=== PATIENT | male | born 1965 | race Caucasian/White ===

== ENCOUNTER 2018-03-22 00:16 | Emergency (ER) | payer BC ==
[2018-03-22 00:23] VITALS: BP 160/97; PULSE 70; RESP 18; TEMP 98.5
--- NOTE | 2018-03-22 01:03 | ED ---
ENT HPI - General Chief complaint: ENT Stated complaint: Ear and Tooth Pain Time Seen by Provider: 03/22/18 01:02 Source: patient Mode of arrival: ambulatory Limitations: no limitations - History of Present Illness Initial comments: Tevin is a 52-year-old male with past medical history of chronic dental pain, recurrent otitis and chronic sinusitis who presents the emergency department today for evaluation of left-sided ear pain. Patient reports that he's been dealing with chronic dental pain since 2012 at which time he had all of his teeth removed and was fitted for dentures. He reports that despite having his teeth removed he's experience chronic pain in his gums and has been unable to wear his dentures. Patient states that he's also had chronic sinusitis and always has congestion of his left naris. Patient reports he has had ear infections in the past and that over the past couple of days he's developed progressively worsening pain in his left ear which is similar in character to previous episodes of ear infection. Patient describes it as a constant pressure -like pain which is worse with laying down and better when he applies a heating pad to his ear. Patient denies any fevers, chills, nausea, vomiting, change in bowel or bladder habits or any other complaints. He reports that he has not been on any antibiotics in a number of months to years. - Related Data Previous Rx's Medication Instructions Recorded Amoxicillin/Potassium Clav 1 tab PO Q12HR 7 Days #14 tab 03/22/18 [Augmentin 875-125 Tablet] Allergies Allergy/AdvReac Type Severity Reaction Status Date / Time No Known Allergies Allergy Verified 03/22/18 00:23 Review of Systems ROS Statement: Those systems with pertinent positive or pertinent negative responses have been documented in the HPI. ROS Other: All systems not noted in ROS Statement are negative. Past Medical History Past Medical History: Hypertension Additional Past Medical History / Comment(s): tremors, macular degeneration History of Any Multi-Drug Resistant Organisms: None Reported Past Surgical History: Cholecystectomy, Tonsillectomy Past Psychological History: No Psychological Hx Reported Smoking Status: Never smoker Past Alcohol Use History: None Reported Past Drug Use History: None Reported General Exam - General Exam Comments Initial Comments: GENERAL: Patient is well-developed and well-nourished. Patient is nontoxic and well- hydrated and is in no distress. HENT: Normocephalic, Atraumatic. Neck is soft and supple. No significant lymphadenopathy is noted. Oropharynx is clear. Patient is intentionally is, gums are pink and non-infected. Moist mucous membranes. Neck has full range of motion without eliciting any pain. TM injected bilaterally, left TM with air fluid level behind TM, scars on TM from previous perforation EYES: The sclera were anicteric and conjunctiva were pink and moist. Extraocular movements were intact and pupils were equal round and reactive to light. Eyelids were unremarkable. PULMONARY: Unlabored respirations. Good breath sounds bilaterally. No audible rales rhonchi or wheezing was noted. CARDIOVASCULAR: There is a regular rate and rhythm without any murmurs gallops or rubs. ABDOMEN: Soft and nontender with normal bowel sounds. SKIN: Skin is clear with no lesions or rashes and otherwise unremarkable. NEUROLOGIC: Patient is alert and oriented x3. Cranial nerves II through XII are grossly intact. Motor and sensory are also intact. Normal speech, volume and content. Symmetrical smile. MUSCULOSKELETAL: Normal extremities with adequate strength and full range of motion. No lower extremity swelling or edema. LYMPHATICS: No significant lymphadenopathy is noted PSYCHIATRIC: Normal psychiatric evaluation. Limitations: no limitations Limitations: no limitations Course Vital Signs 03/22/ 00:21 Temperature 98.5 F Pulse Rate 70 Respiratory 18 Rate Blood Pressure 160/97 O2 Sat by Pulse 97 Oximetry Medical Decision Making - Medical Decision Making Patient was seen and evaluated, history was obtained from patient physical exam reveals a scarred left TM with fluid and air/fluid level behind TM , some erythema - will treat for acute OM, patient not recently on oral antibiotics No mastoid tenderness, swelling or concern for mastoiditis Patient with chronic sinusitis and problems with congestion/sinus pressure on the left, I recommended he follow up with ENT outpatient for further management. Patient is agreeable to this plan. Questions pertaining care were answered best my ability and patient was discharged home in stable condition with referral to ENT. Disposition Clinical Impression: Otitis media, Chronic dental pain Disposition: HOME SELF-CARE Condition: Good Instructions: Earache (ED) Prescriptions: Amoxicillin/Potassium Clav [Augmentin 875-125 Tablet] 1 tab PO Q12HR 7 Days #14 tab Is patient prescribed a controlled substance at d/c from ED?: No Referrals: Aydin Thornton MD [Primary Care Provider] - 1-2 days Cesar Gilbert MD [STAFF PHYSICIAN] - 1-2 days Time of Disposition: 01:21
== END 2018-03-22 01:41 | disposition home or self-care (01) ==
LOC: EC 00:16
DX: H66.92 Otitis media, unspecified, left ear (principal); K08.89 Other specified disorders of teeth and supporting structures; G89.29 Other chronic pain; J32.9 Chronic sinusitis, unspecified
CPT/HCPCS: 99282

== ENCOUNTER 2019-12-01 20:13 | Emergency (ER) | payer BC ==
[2019-12-01 20:17] VITALS: TEMP 98.7
[2019-12-01] MEDS ORDERED: methylPREDNISolone SOD SUCCI 125 MG/2 ML VIAL IM ONE (20:41)
--- NOTE | 2019-12-01 20:45 | ED ---
General Adult HPI - General Chief complaint: Shortness of Breath Stated complaint: SOB Time Seen by Provider: 12/01/19 20:33 Source: patient Mode of arrival: wheelchair Limitations: no limitations - History of Present Illness Initial comments: Patient is a 53-year-old male presenting to the emergency Department with complaints of a cough 1 day. Patient states he has a history of asthma. Patient states he was diagnosed with bronchitis approximately one month ago and also tested for Covid which was negative at the time. His fiance does work for [employer]. Patient states he started coughing this morning has been coughing for most the day. His cough is productive. He did try a breathing treatment at home as well as his albuterol inhaler. He has not tried a cough suppressant. He does have burning in the middle of his chest when he coughs. He denies any chest pains. He does admit to being mildly short of breath. He denies fever, chills, abdominal complaints, nausea, vomiting, diarrhea. He denies being dizzy. He has no other complaints at this time. Upon arrival to the ER, his vital signs are stable. - Related Data Previous Rx's Medication Instructions Recorded Amoxicillin/Potassium Clav 1 tab PO Q12HR 7 Days #14 tab 03/22/18 [Augmentin 875-125 Tablet] Albuterol Inhaler [Ventolin Hfa 1 puff INHALATION RT-QID PRN #1 12/01/19 Inhaler] puff methylPREDNISolone [Medrol Dose 4 mg PO DIRECTED #1 pack 12/01/19 Pack] Allergies Allergy/AdvReac Type Severity Reaction Status Date / Time No Known Allergies Allergy Verified 12/01/19 20:18 Review of Systems ROS Statement: Those systems with pertinent positive or pertinent negative responses have been documented in the HPI. ROS Other: All systems not noted in ROS Statement are negative. Past Medical History Past Medical History: Asthma, Hypertension, Pneumonia Additional Past Medical History / Comment(s): tremors, macular degeneration History of Any Multi-Drug Resistant Organisms: None Reported Past Surgical History: Cholecystectomy, Tonsillectomy Past Psychological History: No Psychological Hx Reported Smoking Status: Never smoker Past Alcohol Use History: None Reported Past Drug Use History: None Reported General Exam - General Exam Comments Initial Comments: GENERAL: Well-appearing, well-nourished and in no acute distress. HEAD: Atraumatic, normocephalic. EYES: Pupils equal round and reactive to light, extraocular movements intact, sclera anicteric, conjunctiva are normal. ENT: TMs normal, nares patent, oropharynx clear without exudates. Moist mucous membranes. NECK: Normal range of motion, supple without lymphadenopathy or JVD. LUNGS: Patient has mild expiratory wheezes, no rales or rhonchi. HEART: Regular rate and rhythm without murmurs, rubs or gallops. ABDOMEN: Soft, nontender, normoactive bowel sounds. No guarding, no rebound. No masses appreciated. : Deferred EXTREMITIES: Normal range of motion, no pitting or edema. No clubbing or cyanosis. NEUROLOGICAL: Normal speech, normal gait. PSYCH: Normal mood, normal affect. SKIN: Warm, Dry, normal turgor, no rashes or lesions noted. Limitations: no limitations Course Vital Signs 12/01/19 12/01/19 20:16 21:28 Temperature 98.7 F Pulse Rate 83 88 Respiratory 22 20 Rate Blood Pressure 142/78 122/74 O2 Sat by Pulse 97 95 Oximetry Medical Decision Making - Medical Decision Making Patient is a 53-year-old male here for a cough 1 day. History of asthma and COPD. Vital stable. Chest x-ray shows no signs of pneumonia, COPD. COVID is negative. Patient was given steriods the ER. He'll be discharged home with Medrol Dosepak as well as an inhaler. Patient is stable for discharge. He is in agreement with this plan of care. Return parameters were discussed with the patient he verbalizes understanding. He'll follow up with PCP. Case discussed with Dr. Bourne. - Lab Data Lab Results 12/01/19 Range/Units 21:10 Coronavirus (PCR) Not Detected (Not Detectd) Disposition Clinical Impression: Bronchitis Disposition: HOME SELF-CARE Condition: Stable Instructions (If sedation given, give patient instructions): Acute Bronchitis (ED) Additional Instructions: Please return to the Emergency Department if symptoms worsen or any other concerns. Continue with steroids as well as albuterol inhaler as needed. Follow-up with PCP. Prescriptions: methylPREDNISolone [Medrol Dose Pack] 4 mg PO DIRECTED #1 pack Albuterol Inhaler [Ventolin Hfa Inhaler] 1 puff INHALATION RT-QID PRN #1 puff PRN Reason: Shortness Of Breath Is patient prescribed a controlled substance at d/c from ED?: No Referrals: Aydin Thornton MD [Primary Care Provider] - 1-2 days
--- NOTE | 2019-12-01 21:20 | XR ---
EXAMINATION TYPE: XR chest 2V DATE OF EXAM: 12/01/2019 COMPARISON: NONE TECHNIQUE: PA and lateral views submitted. HISTORY: Cough and pain FINDINGS: The lungs are clear and there is no pneumothorax, pleural effusion, or focal pneumonia. Mildly coar sened central interstitium hyperinflation suggests COPD and there is hypertrophic and degenerative ch anges spine. Arthropathy of the shoulders. Chronic appearing deformity of the left second rib. IMPRESSION: 1. COPD. Correlate for mild central interstitial pneumonitis or chronic interstitial lung disease
[2019-12-01 21:30] VITALS: BP 122/74; PULSE 88; RESP 20
== END 2019-12-01 22:16 | disposition home or self-care (01) ==
LOC: EC 20:13
DX: Z03.818 Encounter for observation for suspected exposure to other biological agents ruled out (principal); J40 Bronchitis, not specified as acute or chronic; Z87.09 Personal history of other diseases of the respiratory system
CPT/HCPCS: 87635; 71046; 99285; 96372; J2930

== ENCOUNTER → 2020-02-01 | Outpatient (CLI) | payer BC ==
--- NOTE | 2020-02-01 10:26 | MR ---
EXAMINATION TYPE: MR brain wo/w con DATE OF EXAM: 02/01/2020 COMPARISON: Prior brain MRI 06/14/2011 HISTORY: Follow up to abnormal imaging. Seizure like activity. G 40.209, R 90.89 TECHNIQUE: Multiplanar, multisequence images of the brain and brainstem is performed without and with IV contras t, utilizing 11 mL intravenous Gadavist . FINDINGS: Diffusion weighted images demonstrate no evidence of a recent infarct or other diffusion ab normality. There is no extra-axial fluid collection or significant white matter signal abnormality. The ventricular system and cisternal spaces are normal in size and appearance. The brain volume is age appropriate. Brain signal is essentially stable accounting for differences in technique Midline structures demonstrate normal morphology. The craniocervical junction appears within normal limits. Post contrast images demonstrate no abnormal enhancement. The dural venous sinuses appear pa tent. The visualized sinuses are remarkable for inflammatory change involving the bilateral maxillary sinuses left greater than right, there may be air-fluid level, ethmoid air cells, frontal sinus exte nsive mucoperiosteal thickening, mild changes in the sphenoid and the globes are intact. IMPRESSION: Correlate for sinusitis, possible fungal sinusitis
== END | disposition home or self-care (01) ==
LOC: RADMRIMAIN 07:55
PROVIDERS: ATTEND Psychiatry & Neurology Neurology
DX: G40.209 Localization-related (focal) (partial) symptomatic epilepsy and epileptic syndromes with complex partial seizures, not intractable, without status epilepticus (principal); R90.89 Other abnormal findings on diagnostic imaging of central nervous system
CPT/HCPCS: 70553; A9585

== ENCOUNTER → 2020-12-06 | Outpatient (CLI) | payer BC ==
--- NOTE | 2020-12-06 15:07 | XR ---
EXAMINATION TYPE: XR hand limited LT DATE OF EXAM: 12/06/2020 COMPARISON: NONE HISTORY: Pain. TECHNIQUE: Two views are submitted. FINDINGS: The osseous structures are intact. There is arthropathy of the DIP joints and first MCP joint. No ero sive changes. No acute fracture or dislocation. IMPRESSION: 1. Arthropathy.
== END | disposition home or self-care (01) ==
LOC: RADXRMAIN 14:46
PROVIDERS: ATTEND Physician Assistant
DX: M12.841 Other specific arthropathies, not elsewhere classified, right hand (principal)

== ENCOUNTER → 2021-02-15 | Outpatient (CLI) | payer BC | END | disposition home or self-care (01) | LOC: LABWHC1 15:40 | PROVIDERS: ATTEND Psychiatry & Neurology Neurology | DX: G40.909 Epilepsy, unspecified, not intractable, without status epilepticus (principal) | CPT/HCPCS: 36415; 80183 ==

== ENCOUNTER 2023-11-13 20:57 | Emergency (ER) | payer BC, OTHER ==
[2023-11-13 21:16] VITALS: BP 123/78; PULSE 56; RESP 18; TEMP 97.4
--- NOTE | 2023-11-13 22:34 | ED ---
General Adult HPI - General Chief complaint: Skin/Abscess/Foreign Body Stated complaint: Rash on arms Time Seen by Provider: 11/13/23 21:08 Source: patient, RN notes reviewed Mode of arrival: ambulatory Limitations: no limitations - History of Present Illness Initial comments: 57-year-old male presents to the emergency department for evaluation of rash to bilateral forearms. He states that this has been going on for around 2 weeks. He states that the rash is very itchy. Reports that the rash is nowhere else on his body. He notes that he occasionally has been using hydrocortisone cream which helps. 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 He denies any other new products, foods. - Related Data Previous Rx's Medication Instructions Recorded Amoxicillin/Potassium Clav 1 tab PO Q12HR 7 Days #14 tab 03/22/18 [Augmentin 875-125 Tablet] Albuterol Inhaler [Ventolin Hfa 1 puff INHALATION RT-QID PRN #1 12/01/19 Inhaler] puff methylPREDNISolone [Medrol Dose 4 mg PO DIRECTED #1 pack 12/01/19 Pack] hydrOXYzine pamoate [Vistaril] 25 mg PO TID PRN #15 cap 11/13/23 Allergies Allergy/AdvReac Type Severity Reaction Status Date / Time No Known Allergies Allergy Verified 11/13/23 21:05 Review of Systems ROS Statement: Those systems with pertinent positive or pertinent negative responses have been documented in the HPI. ROS Other: All systems not noted in ROS Statement are negative. Past Medical History Past Medical History: Asthma, Hypertension, Pneumonia, Seizure Disorder Additional Past Medical History / Comment(s): tremors, macular degeneration History of Any Multi-Drug Resistant Organisms: None Reported Past Surgical History: Cholecystectomy, Tonsillectomy Past Psychological History: No Psychological Hx Reported Smoking Status: Never smoker Past Alcohol Use History: None Reported Past Drug Use History: Marijuana General Exam Limitations: no limitations General appearance: alert, in no apparent distress Head exam: Present: atraumatic, normocephalic, normal inspection Eye exam: Present: normal appearance, PERRL, EOMI. Absent: scleral icterus, conjunctival injection, periorbital swelling ENT exam: Present: normal exam, mucous membranes moist Neck exam: Present: normal inspection. Absent: tenderness, meningismus, lymphadenopathy Respiratory exam: Present: normal lung sounds bilaterally. Absent: respiratory distress, wheezes, rales, rhonchi, stridor Cardiovascular Exam: Present: regular rate, normal rhythm, normal heart sounds. Absent: systolic murmur, diastolic murmur, rubs, gallop, clicks Extremities exam: Present: normal inspection, full ROM, normal capillary refill. Absent: tenderness, pedal edema, joint swelling, calf tenderness Back exam: Present: normal inspection Neurological exam: Present: alert, oriented X3 Psychiatric exam: Present: normal affect, normal mood Skin exam: Present: warm, dry, intact, other (blanching, erythematous papular rash to bilateral forearms). Absent: normal color Course Vital Signs 11/13/23 21:03 Temperature 97.4 F L Pulse Rate 56 L Respiratory 18 Rate Blood Pressure 123/78 O2 Sat by Pulse 98 Oximetry Medical Decision Making - Medical Decision Making Was pt. sent in by a medical professional or institution (SUMAYA Steven, [employer], urgent care, hospital, or residential...) When possible be specific @ -No Did you speak to anyone other than the patient for history (EMS, parent, family, police, friend...)? What history was obtained from this source @ -No Did you review nursing and triage notes (agree or disagree)? Why? @ -I reviewed and agree with nursing and triage notes Were old charts reviewed (outside hosp., previous admission, EMS record, old EKG, old radiological studies, urgent care reports/EKG's, residential records)? Report findings @ -No old charts were reviewed Differential Diagnosis (chest pain, altered mental status, abdominal pain women, abdominal pain men, vaginal bleeding, weakness, fever, dyspnea, syncope, headache, dizziness, GI bleed, back pain, seizure, CVA, palpatations, mental health, musculoskeletal)? @ -Contact dermatitis, eczema, bug bites, this list is not all inclusive EKG interpreted by me (3pts min.). @ -None X-rays interpreted by me (1pt min.). @ -None done CT interpreted by me (1pt min.). @ -None done U/S interpreted by me (1pt. min.). @ -None done What testing was considered but not performed or refused? (CT, X-rays, U/S, labs)? Why? @ -None What meds were considered but not given or refused? Why? @ -None Did you discuss the management of the patient with other professionals (professionals i.e. Dr., PA, [employer], lab, RT, psych nurse, social work case manager, fishing captain, teacher, booking police officer, social work case manager)? Give summary @ -No Was smoking cessation discussed for >3mins.? @ -No Was critical care preformed (if so, how long)? @ -No Were there social determinants of health that impacted care today? How? (Homelessness, low income, unemployed, alcoholism, drug addiction, transportation, low edu. Level, literacy, decrease access to med. care, usp, rehab)? @ -No Was there de-escalation of care discussed even if they declined (Discuss DNR or withdrawal of care, Hospice)? DNR status @ -No What co-morbidities impacted this encounter? (DM, HTN, Smoking, COPD, CAD, Cancer, CVA, ARF, Chemo, Hep., AIDS, mental health diagnosis, sleep apnea, morbid obesity)? @ -None Was patient admitted / discharged? Hospital course, mention meds given and route, prescriptions, significant lab abnormalities, going to OR and other pertinent info. @ -Discharged. Patient presents to the emergency department for evaluation of rash. Patient has erythematous, papular rash to bilateral forearms. Patient will be treated with topical triamcinolone and hydroxyzine for symptom management. Advised to follow-up with PCP. Patient understanding agreeable plan. Patient stable at time of discharge. Case discussed with Dr. Ly Undiagnosed new problem with uncertain prognosis? @ -No Drug Therapy requiring intensive monitoring for toxicity (Heparin, Nitro, Insulin, Cardizem)? @ -No Were any procedures done? @ -No Diagnosis/symptom? @ -Contact dermatitis Acute, or Chronic, or Acute on Chronic? @ -acute Uncomplicated (without systemic symptoms) or Complicated (systemic symptoms)? @ -Uncomplicated Side effects of treatment? @ -No Exacerbation, Progression, or Severe Exacerbation? @ -No Poses a threat to life or bodily function? How? (Chest pain, [place], [place], pneumonia, PE, COPD, DKA, ARF, appy, cholecystitis, CVA, Diverticulitis, Homicidal, S uicidal, threat to staff... and all critical care pts) @ -No Disposition Clinical Impression: Dermatitis Disposition: HOME SELF-CARE Condition: Stable Instructions (If sedation given, give patient instructions): Dermatitis (ED) Additional Instructions: Apply the cream 4 times daily for the next 5 days. Follow up with your primary care provider if you do not see improvement. Return to the emergency department for new or worsening symptoms. Prescriptions: hydrOXYzine pamoate [Vistaril] 25 mg PO TID PRN #15 cap PRN Reason: Itching Is patient prescribed a controlled substance at d/c from ED?: No Referrals: Beck Pinto MD [Primary Care Provider] - 1-2 days
[2023-11-13] MEDS: TRIAMCINOLONE 0.1% CREAM 80 GM TUBE TOPICAL STA (22:42)
[2023-11-13] MEDS: hydrOXYzine HCL 25 MG TAB PO STA (22:42)
== END 2023-11-13 22:40 | disposition home or self-care (01) ==
LOC: EC 20:57
DX: L25.9 Unspecified contact dermatitis, unspecified cause (principal)
CPT/HCPCS: 99282

== ENCOUNTER 2023-12-31 21:12 | Emergency (ER) | payer OTHER ==
[2023-12-31 21:16] VITALS: RESP 18; TEMP 98.3
--- NOTE | 2023-12-31 22:47 | ED ---
Back Pain HPI - General Chief Complaint: Back Pain/Injury Stated Complaint: Back Pain Time Seen by Provider: 12/31/23 22:35 Source: patient Limitations: no limitations - History of Present Illness Initial Comments: 58-year-old male presented to the ED with complaints of back pain. Patient states he was working on his friend's car and twisted his back a few days ago. Since then reports that he has had continued back pain. Pain worse with movement. Denies saddle anesthesia or incontinence. Denies urinary symptoms. Fever or chills. No other complaints at this time. - Related Data Previous Rx's Medication Instructions Recorded Amoxicillin/Potassium Clav 1 tab PO Q12HR 7 Days #14 tab 03/22/18 [Augmentin 875-125 Tablet] Albuterol Inhaler [Ventolin Hfa 1 puff INHALATION RT-QID PRN #1 12/01/19 Inhaler] puff methylPREDNISolone [Medrol Dose 4 mg PO DIRECTED #1 pack 12/01/19 Pack] hydrOXYzine pamoate [Vistaril] 25 mg PO TID PRN #15 cap 11/13/23 Cyclobenzaprine [Flexeril] 10 mg PO TID PRN #15 tab 01/01/24 Ibuprofen 600 mg PO Q6H #30 tab 01/01/24 Allergies Allergy/AdvReac Type Severity Reaction Status Date / Time No Known Allergies Allergy Verified 12/31/23 21:16 Review of Systems ROS Statement: Those systems with pertinent positive or pertinent negative responses have been documented in the HPI. ROS Other: All systems not noted in ROS Statement are negative. Past Medical History Past Medical History: Asthma, Hypertension, Pneumonia, Seizure Disorder Additional Past Medical History / Comment(s): tremors, macular degeneration History of Any Multi-Drug Resistant Organisms: None Reported Past Surgical History: Cholecystectomy, Tonsillectomy Past Psychological History: No Psychological Hx Reported Smoking Status: Never smoker Past Alcohol Use History: None Reported Past Drug Use History: Marijuana General Exam - General Exam Comments Initial Comments: Visual Physical Exam Vital signs reviewed General: Well-appearing, nontoxic, no acute distress. Head: Normocephalic, atraumatic Eyes: PERRLA, EOMI ENT: Airway patent Chest: Nonlabored breathing Skin: No visual rash, normal skin tone Neuro: Alert and oriented 3 Musculoskeletal: No gross abnormalities Limitations: no limitations General appearance: alert, in no apparent distress Eye exam: Present: normal appearance Neck exam: Present: normal inspection Respiratory exam: Present: normal lung sounds bilaterally Cardiovascular Exam: Present: regular rate GI/Abdominal exam: Present: soft, normal bowel sounds. Absent: distended, tenderness, guarding, rebound, rigid Extremities exam: Present: normal inspection Back exam: Present: other (No midline spinal tenderness to palpation. Right paraspinal tenderness to palpation) Neurological exam: Present: alert, oriented X3 Skin exam: Present: warm, dry Course Vital Signs 12/31/23 01/01/24 21:14 00:34 Temperature 98.3 F Pulse Rate 64 66 Respiratory 18 18 Rate Blood Pressure 122/72 124/66 O2 Sat by Pulse 99 97 Oximetry Medical Decision Making - Medical Decision Making Was pt. sent in by a medical professional or institution (SUMAYA Steven, REGISTERED ACCOUNT ADMINISTRATOR, urgent care, hospital, or residential...) When possible be specific @ -No Did you speak to anyone other than the patient for history (EMS, parent, family, police, friend...)? What history was obtained from this source @ -No Did you review nursing and triage notes (agree or disagree)? Why? @ -I reviewed and agree with nursing and triage notes Were old charts reviewed (outside hosp., previous admission, EMS record, old EKG, old radiological studies, urgent care reports/EKG's, residential records)? Report findings @ -No old charts were reviewed Differential Diagnosis (chest pain, altered mental status, abdominal pain women, abdominal pain men, vaginal bleeding, weakness, fever, dyspnea, syncope, headache, dizziness, GI bleed, back pain, seizure, CVA, palpatations, mental health, musculoskeletal)? @ -Differential Back Pain: Strain, zoster, cauda equina syndrome, epidural abscess, vertebral osteomyelitis, discitis, fracture, subluxation, disc herniation, DJD, spinal stenosis, dissection, AAA, pancreatitis, peptic ulcer disease, pyelonephritis, kidney stone, this is not meant to be an all-inclusive list. EKG interpreted by me (3pts min.). @ -None X-rays interpreted by me (1pt min.). @ -X-ray lumbar spine interpreted me which revealed no evidence of acute finding. CT interpreted by me (1pt min.). @ -None done U/S interpreted by me (1pt. min.). @ -None done What testing was considered but not performed or refused? (CT, X-rays, U/S, labs)? Why? @ -None What meds were considered but not given or refused? Why? @ -None Did you discuss the management of the patient with other professionals (professionals i.e. , PA, REGISTERED ACCOUNT ADMINISTRATOR, lab, RT, psych nurse, social media sr strategy manager, cane cutter, teacher, credit administration officer, case monitor)? Give summary @ -No Was smoking cessation discussed for >3mins.? @ -No Was critical care preformed (if so, how long)? @ -No Were there social determinants of health that impacted care today? How? (Homelessness, low income, unemployed, alcoholism, drug addiction, t ransportation, low edu. Level, literacy, decrease access to med. care, longterm, rehab)? @ -No Was there de-escalation of care discussed even if they declined (Discuss DNR or withdrawal of care, Hospice)? DNR status @ -No What co-morbidities impacted this encounter? (DM, HTN, Smoking, COPD, CAD, Cancer, CVA, ARF, Chemo, Hep., AIDS, mental health diagnosis, sleep apnea, morbid obesity)? @ -None Was patient admitted / discharged? Hospital course, mention meds given and route, prescriptions, significant lab abnormalities, going to OR and other pertinent info. @ -Discharge 58-year-old male presenting to the ED with complaints of continued back pain after twisting his body 2 to 3 days ago. No saddle anesthesia or incontinence. No fever or chills. No alarm symptoms at this time. X-ray was performed which revealed no evidence of acute finding. Patient provided analgesia here with complete resolution of pain. Symptoms likely musculoskeletal in nature. Discharged home in stable condition with instructions to follow-up with PCP. Discussed precautions with patient who verbalized agreement. Undiagnosed new problem with uncertain prognosis? @ -No Drug Therapy requiring intensive monitoring for toxicity (Heparin, Nitro, Insulin, Cardizem)? @ -No Were any procedures done? @ -No Diagnosis/symptom? @ -Back pain Acute, or Chronic, or Acute on Chronic? @ -Acute Uncomplicated (without systemic symptoms) or Complicated (systemic symptoms)? @ -Uncomplicated Side effects of treatment? @ -No Exacerbation, Progression, or Severe Exacerbation? @ -No Poses a threat to life or bodily function? How? (Chest pain, USA, CT, pneumonia, PE, COPD, DKA, ARF, appy, cholecystitis, CVA, Diverticulitis, Homicidal, Suicidal, threat to staff... and all critical care pts) @ -No Disposition Clinical Impression: Back pain Disposition: HOME SELF-CARE Condition: Good Instructions (If sedation given, give patient instructions): Acute Low Back Pain (ED) Additional Instructions: Please return to the Emergency Department if symptoms worsen or any other concerns. Please follow-up with your primary care provider. Prescriptions: Cyclobenzaprine [Flexeril] 10 mg PO TID PRN #15 tab PRN Reason: Muscle Spasm Ibuprofen 600 mg PO Q6H #30 tab Is patient prescribed a controlled substance at d/c from ED?: No Referrals: Beck Pinto MD [Primary Care Provider] - 1-2 days Time of Disposition: 00:26
--- NOTE | 2023-12-31 23:10 | XR ---
EXAMINATION TYPE: XR thoracic spine 2V DATE OF EXAM: 12/31/2023 CLINICAL HISTORY: Back pain after recent injury. TECHNIQUE: Frontal, lateral, and swimmer's view of thoracic spine are obtained. COMPARISON: None. FINDINGS: Thoracic spine show slight scoliotic curvature without evidence of acute fracture or disloc ation. Vertebral body heights and disc space heights are preserved. Multilevel spurring anterior suleman dging osteophytes are seen. Visualized ribs are intact bilaterally. Cholecystectomy clips are noted. IMPRESSION: No acute fracture or dislocation is seen in the thoracic spine.
--- NOTE | 2023-12-31 23:11 | XR ---
EXAMINATION TYPE: XR lumbar spine 2 or 3V DATE OF EXAM: 12/31/2023 CLINICAL HISTORY: Back pain after recent injury TECHNIQUE: Frontal and lateral images of the lumbar spine are obtained. COMPARISON: None FINDINGS: There are 5 lumbar type vertebral bodies identified. There is grade 1 anterolisthesis L5 o n S1. Vertebral body heights are maintained. No acute displaced fracture. Mild disc space narrowing a t L4-L5 level. Cibj-jd-vdbucowy disc space narrowing at L5-S1 level. Overlying soft tissues are unrem arkable. IMPRESSION: No acute fracture or dislocation is seen in the lumbar spine.
[2023-12-31] MEDS: KETOROLAC 15 MG/ML 1 ML VIAL IM STA (23:39)
[2023-12-31] MEDS: CYCLOBENZAPRINE 10 MG TAB PO STA (23:39)
[2023-12-31] MEDS: HYDROmorphone 0.5 MG/0.5 ML SYRINGE IM STA (23:41)
[2024-01-01] MEDS ORDERED: CYCLOBENZAPRINE 10MG STARTER 3 TAB BTL PO STA (00:24)
[2024-01-01 00:38] VITALS: BP 124/66; PULSE 66
== END 2024-01-01 00:37 | disposition home or self-care (01) ==
LOC: EC 21:12
DX: M54.9 Dorsalgia, unspecified (principal); F12.90 Cannabis use, unspecified, uncomplicated
CPT/HCPCS: 72070; 72100; 99283; 96372 ×2; J1885; J1170

== ENCOUNTER 2024-02-25 22:50 | Emergency (ER) | payer OTHER ==
[2024-02-25 22:58] VITALS: TEMP 97.4
--- NOTE | 2024-02-25 23:56 | ED ---
General Adult HPI - General Chief complaint: Weakness Stated complaint: Body Aches Time Seen by Provider: 02/25/24 23:33 Source: patient Mode of arrival: ambulatory Limitations: no limitations - History of Present Illness Initial comments: This patient is a 58-year-old man who presents with complaint of having diffuse bodyaches after going back to work. The patient had been off for some time on medical leave and then when he went back, states that the exertion caused him to have aches and pains. Patient denies specific traumatic injury. Indicates pains to multiple joints as well as muscles of the back and legs. -: hour(s) Location: back, left, right, lower extremity Quality: aching Consistency: constant Improves with: none Worsens with: none Associated Symptoms: denies other symptoms Treatments Prior to Arrival: none - Related Data Previous Rx's Medication Instructions Recorded Amoxicillin/Potassium Clav 1 tab PO Q12HR 7 Days #14 tab 03/22/18 [Augmentin 875-125 Tablet] Albuterol Inhaler [Ventolin Hfa 1 puff INHALATION RT-QID PRN #1 12/01/19 Inhaler] puff methylPREDNISolone [Medrol Dose 4 mg PO DIRECTED #1 pack 12/01/19 Pack] hydrOXYzine pamoate [Vistaril] 25 mg PO TID PRN #15 cap 11/13/23 Cyclobenzaprine [Flexeril] 10 mg PO TID PRN #15 tab 01/01/24 Ibuprofen 600 mg PO Q6H #30 tab 01/01/24 Ibuprofen [Motrin] 600 mg PO Q8HR PRN #20 tab 02/26/24 Diphenox-Atrop 2.5-0.025 mg 1 - 2 tab PO QID PRN 3 Days #24 tab 02/28/24 [Lomotil] Allergies Allergy/AdvReac Type Severity Reaction Status Date / Time No Known Allergies Allergy Verified 02/28/24 22:58 Review of Systems ROS Statement: Those systems with pertinent positive or pertinent negative responses have been documented in the HPI. ROS Other: All systems not noted in ROS Statement are negative. Constitutional: Denies: fever, chills, weakness Respiratory: Denies: cough, dyspnea Cardiovascular: Denies: chest pain, palpitations Gastrointestinal: Denies: abdominal pain, vomiting, diarrhea Genitourinary: Denies: dysuria Musculoskeletal: Reports: as per HPI, back pain, myalgia Skin: Denies: rash Neurological: Denies: headache, weakness, numbness Past Medical History Past Medical History: Asthma, Hypertension, Pneumonia, Seizure Disorder Additional Past Medical History / Comment(s): tremors, macular degeneration History of Any Multi-Drug Resistant Organisms: None Reported Past Surgical History: Cholecystectomy, Tonsillectomy Past Psychological History: No Psychological Hx Reported Smoking Status: Never smoker Past Alcohol Use History: None Reported Past Drug Use History: Marijuana General Exam Limitations: no limitations General appearance: alert, in no apparent distress Head exam: Present: atraumatic, normocephalic Eye exam: Present: normal appearance. Absent: scleral icterus, conjunctival injection Neck exam: Present: normal inspection Respiratory exam: Present: normal lung sounds bilaterally. Absent: respiratory distress, wheezes, rales, rhonchi, stridor Cardiovascular Exam: Present: regular rate, normal rhythm, normal heart sounds. Absent: systolic murmur, diastolic murmur, rubs, gallop GI/Abdominal exam: Present: soft. Absent: distended, tenderness, guarding, rebound, rigid, mass Extremities exam: Present: normal inspection, normal capillary refill. Absent: pedal edema, calf tenderness Back exam: Present: normal inspection Neurological exam: Present: alert Skin exam: Present: warm, dry, intact, normal color. Absent: rash Course Vital Signs 02/25/24 02/26/24 22:54 01:19 Temperature 97.4 F L Pulse Rate 63 68 Respiratory 22 18 Rate Blood Pressure 118/73 118/79 O2 Sat by Pulse 96 98 Oximetry Medical Decision Making - Medical Decision Making Patient is a 58-year-old man with bodyaches after return to work. Exam is benign and he has had improvement. Discussed appropriate further care and follow-up as well as return parameters. Was pt. sent in by a medical professional or institution (, PA, CHIEF AIRLINE RADIO OPERATOR, urgent care, hospital, or alf...) When possible be specific @ -[No] Did you speak to anyone other than the patient for history (EMS, parent, family, police, friend...)? What history was obtained from this source @ -[No] Did you review nursing and triage notes (agree or disagree)? Why? @ -[I reviewed and agree with nursing and triage notes] Were old charts reviewed (outside hosp., previous admission, EMS record, old EKG, old radiological studies, urgent care reports/EKG's, alf records)? Report findings @ -[No old charts were reviewed] Differential Diagnosis (chest pain, altered mental status, abdominal pain women, abdominal pain men, vaginal bleeding, weakness, fever, dyspnea, syncope, headache, dizziness, GI bleed, back pain, seizure, CVA, palpatations, mental health, musculoskeletal)? @ -[Differential Musculoskeletal Muscular strain, contusion, ligament sprain, fracture, arthritis, septic arthritis, bursitis, cellulitis, muscle spasm, nerve compression, DVT, arterial occlusion, herpes zoster, electrolyte abnormality, tumor.... This is not meant to be in all inclusive list EKG interpreted by me (3pts min.). @ -[As above] X-rays interpreted by me (1pt min.). @ -[None done] CT interpreted by me (1pt min.). @ -[None done] U/S interpreted by me (1pt. min.). @ -[None done] What testing was considered but not performed or refused? (CT, X-rays, U/S, labs)? Why? @ -[None] What meds were considered but not given or refused? Why? @ -[None] Did you discuss the management of the patient with other professionals (professionals i.e. , PA, CHIEF AIRLINE RADIO OPERATOR, lab, RT, psych nurse, community mental health social worker, sports lawyer, teacher, motorized squad commanding officer, casey saw operator)? Give summary @ -[No] Was smoking cessation discussed for >3mins.? @ -[No] Was critical care preformed (if so, how long)? @ -[No] Were there social determinants of health that impacted care today? How? (Homelessness, low income, unemployed, alcoholism, drug addiction, transportation, low edu. Level, literacy, decrease access to med. care, halfway, rehab)? @ -[No] Was there de-escalation of care discussed even if they declined (Discuss DNR or withdrawal of care, Hospice)? DNR status @ -[No] What co-morbidities impacted this encounter? (DM, HTN, Smoking, COPD, CAD, Cancer, CVA, ARF, Chemo, Hep., AIDS, mental health diagnosis, sleep apnea, morbid obesity)? @ -[None] Was patient admitted / discharged? Hospital course, mention meds given and route, prescriptions, significant lab abnormalities, going to OR and other per tinent info. @ -[hospital course] Undiagnosed new problem with uncertain prognosis? @ -[No] Drug Therapy requiring intensive monitoring for toxicity (Heparin, Nitro, Insulin, Cardizem)? @ -[No] Were any procedures done? @ -[No] Diagnosis/symptom? @ -[Acute polyarthralgia secondary to work Acute myalgias secondary to muscle strain] Acute, or Chronic, or Acute on Chronic? @ -Acute Uncomplicated (without systemic symptoms) or Complicated (systemic symptoms)? @ -[Uncomplicated Side effects of treatment? @ -[No] Exacerbation, Progression, or Severe Exacerbation? @ -[No] Poses a threat to life or bodily function? How? (Chest pain, USA, OR, pneumonia, PE, COPD, DKA, ARF, appy, cholecystitis, CVA, Diverticulitis, Homicidal, Suicidal, threat to staff... and all critical care pts) @ -[No] - Lab Data Result diagrams: 02/26/24 00:05 02/26/24 00:05 Lab Results 02/26/24 02/26/24 Range/Units 00:05 00:05 WBC 8.4 (3.8-10.6) k/uL RBC 5.08 (4.30-5.90) m/uL Hgb 14.9 (13.0-17.5) gm/dL Hct 43.6 (39.0-53.0) % MCV 86.0 (80.0-100.0) fL MCH 29.3 (25.0-35.0) pg MCHC 34.1 (31.0-37.0) g/dL RDW 13.4 (11.5-15.5) % Plt Count 175 (150-450) k/uL MPV 6.8 Neutrophils % 55 % Lymphocytes % 26 % Monocytes % 11 % Eosinophils % 5 % Basophils % 1 % Neutrophils # 4.6 (1.3-7.7) k/uL Lymphocytes # 2.2 (1.0-4.8) k/uL Monocytes # 0.9 (0-1.0) k/uL Eosinophils # 0.5 (0-0.7) k/uL Basophils # 0.1 (0-0.2) k/uL Sodium 134 L (137-145) mmol/L Potassium 3.8 (3.5-5.1) mmol/L Chloride 107 (98-107) mmol/L Carbon Dioxide 24 (22-30) mmol/L Anion Gap 3 mmol/L BUN 16 (9-20) mg/dL Creatinine 0.86 (0.66-1.25) mg/dL Est GFR (CKD-EPI)AfAm >90 (>60 ml/min/1.73 sqM) Est GFR (CKD-EPI)NonAf >90 (>60 ml/min/1.73 sqM) Glucose 101 H (74-99) mg/dL Calcium 8.6 (8.4-10.2) mg/dL Magnesium 1.9 (1.6-2.3) mg/dL C-Reactive Protein 2.0 H (<1.0) mg/dL Disposition Clinical Impression: Polyarthralgia Disposition: HOME SELF-CARE Condition: Good Instructions (If sedation given, give patient instructions): Arthralgia (ED) Prescriptions: Ibuprofen [Motrin] 600 mg PO Q8HR PRN #20 tab PRN Reason: Pain Is patient prescribed a controlled substance at d/c from ED?: No Referrals: Beck Pinto MD [Primary Care Provider] - 1-2 days
[2024-02-26 00:23] LABS: Basophils # (A) 0.1 k/uL (0-0.2); Basophils % (A) 1 %; Eosinophils # (A) 0.5 k/uL (0-0.7); Eosinophils % (A) 5 %; HCT 43.6 % (39.0-53.0); HGB 14.9 gm/dL (13.0-17.5); Lymphocytes # (A) 2.2 k/uL (1.0-4.8); Lymphocytes % (A) 26 %; MCH 29.3 pg (25.0-35.0); MCHC 34.1 g/dL (31.0-37.0); Mean Platelet Volume 6.8; Monocytes # (A) 0.9 k/uL (0-1.0); Monocytes % (A) 11 %; Neutrophils # (A) 4.6 k/uL (1.3-7.7); Neutrophils % (A) 55 %; Platelet Count 175 k/uL (150-450); RBC 5.08 m/uL (4.30-5.90); RDW 13.4 % (11.5-15.5); WBC 8.4 k/uL (3.8-10.6)
[2024-02-26 00:34] LABS: African American GFR (CKD) >90 (>60 ml/min/1.73 sqM); Anion Gap 3 mmol/L; Blood Urea Nitrogen 16 mg/dL (9-20); Calcium 8.6 mg/dL (8.4-10.2); Carbon Dioxide 24 mmol/L (22-30); Chloride 107 mmol/L (98-107); Glucose 101 mg/dL (74-99); Magnesium 1.9 mg/dL (1.6-2.3); Non-African American GFR(CKD) >90 (>60 ml/min/1.73 sqM); Potassium 3.8 mmol/L (3.5-5.1); Sodium 134 mmol/L (137-145)
[2024-02-26 01:19] VITALS: BP 118/79; PULSE 68; RESP 18
[2024-02-26] MEDS: ACETAMINOPHEN TAB 325 MG TAB PO STA (01:20)
[2024-02-26] MEDS: IBUPROFEN 400 MG TAB PO STA (01:23)
== END 2024-02-26 01:25 | disposition home or self-care (01) ==
LOC: EC 22:50
DX: M25.50 Pain in unspecified joint (principal); Z90.49 Acquired absence of other specified parts of digestive tract
CPT/HCPCS: 36415; 80048; 83735; 85025; 86140; 99285

== ENCOUNTER 2024-02-28 22:46 | Emergency (ER) | payer OTHER ==
[2024-02-28 22:58] VITALS: TEMP 98.6
--- NOTE | 2024-02-29 00:05 | ED ---
General Adult HPI - General Chief complaint: Nausea/Vomiting/Diarrhea Stated complaint: Weakness Time Seen by Provider: 02/28/24 23:06 Source: patient Mode of arrival: ambulatory Limitations: no limitations - History of Present Illness Initial comments: 58-year-old male presenting with chief complaint of diarrhea. Patient believes that he has been having diarrhea "from stress". States that he has had similar episodes like this in the past. He is having no abdominal pain no fevers. No hematochezia, melena, URI-like symptoms, chest pain, difficulty breathing, fatigue, weakness. - Related Data Previous Rx's Medication Instructions Recorded Amoxicillin/Potassium Clav 1 tab PO Q12HR 7 Days #14 tab 03/22/18 [Augmentin 875-125 Tablet] Albuterol Inhaler [Ventolin Hfa 1 puff INHALATION RT-QID PRN #1 12/01/19 Inhaler] puff methylPREDNISolone [Medrol Dose 4 mg PO DIRECTED #1 pack 12/01/19 Pack] hydrOXYzine pamoate [Vistaril] 25 mg PO TID PRN #15 cap 11/13/23 Cyclobenzaprine [Flexeril] 10 mg PO TID PRN #15 tab 01/01/24 Ibuprofen 600 mg PO Q6H #30 tab 01/01/24 Ibuprofen [Motrin] 600 mg PO Q8HR PRN #20 tab 02/26/24 Diphenox-Atrop 2.5-0.025 mg 1 - 2 tab PO QID PRN 3 Days #24 tab 02/28/24 [Lomotil] Allergies Allergy/AdvReac Type Severity Reaction Status Date / Time No Known Allergies Allergy Verified 02/28/24 22:58 Review of Systems ROS Statement: Those systems with pertinent positive or pertinent negative responses have been documented in the HPI. ROS Other: All systems not noted in ROS Statement are negative. Past Medical History Past Medical History: Asthma, Hypertension, Pneumonia, Seizure Disorder Additional Past Medical History / Comment(s): tremors, macular degeneration History of Any Multi-Drug Resistant Organisms: None Reported Past Surgical History: Cholecystectomy, Tonsillectomy Past Psychological History: No Psychological Hx Reported Smoking Status: Never smoker Past Alcohol Use History: None Reported Past Drug Use History: Marijuana General Exam Limitations: no limitations General appearance: alert, in no apparent distress Head exam: Present: atraumatic, normocephalic Eye exam: Present: normal appearance, EOMI Neck exam: Present: normal inspection. Absent: meningismus Respiratory exam: Present: normal lung sounds bilaterally. Absent: respiratory distress, wheezes, rales, rhonchi, stridor Cardiovascular Exam: Present: regular rate, normal rhythm, normal heart sounds. Absent: systolic murmur, diastolic murmur, rubs, gallop, clicks GI/Abdominal exam: Present: soft. Absent: distended, tenderness, guarding, rebound, rigid Neurological exam: Present: alert, oriented X3 Psychiatric exam: Present: normal affect, normal mood Skin exam: Present: warm, dry Course Vital Signs 02/28/24 02/28/24 02/29/24 22:57 22:58 01:15 Temperature 98.6 F Pulse Rate 75 64 68 Respiratory 18 16 20 Rate Blood Pressure 132/85 145/94 136/84 O2 Sat by Pulse 97 99 98 Oximetry Medical Decision Making - Medical Decision Making Was pt. sent in by a medical professional or institution (, PA, CREW MANAGER, urgent care, hospital, or [facility]...) When possible be specific @ -No Did you speak to anyone other than the patient for history (EMS, parent, family, police, friend...)? What history was obtained from this source @ -No Did you review nursing and triage notes (agree or disagree)? Why? @ -I reviewed and agree with nursing and triage notes Were old charts reviewed (outside hosp., previous admission, EMS record, old EKG, old radiological studies, urgent care reports/EKG's, [facility] records)? Report findings @ -No old charts were reviewed Differential Diagnosis (chest pain, altered mental status, abdominal pain women, abdominal pain men, vaginal bleeding, weakness, fever, dyspnea, syncope, he adache, dizziness, GI bleed, back pain, seizure, CVA, palpatations, mental health, musculoskeletal)? @ -Differential includes infectious, IBS, IBD, this is not an all-inclusive list EKG interpreted by me (3pts min.). @ -As above X-rays interpreted by me (1pt min.). @ -None done CT interpreted by me (1pt min.). @ -None done U/S interpreted by me (1pt. min.). @ -None done What testing was considered but not performed or refused? (CT, X-rays, U/S, labs)? Why? @ -None What meds were considered but not given or refused? Why? @ -None Did you discuss the management of the patient with other professionals (professionals i.e. , PA, CREW MANAGER, lab, RT, psych nurse, pediatric social worker, electronic imaging system operator, teacher, sheriff officer, case manager specialist)? Give summary @ -No Was smoking cessation discussed for >3mins.? @ -No Was critical care preformed (if so, how long)? @ -No Were there social determinants of health that impacted care today? How? (Homelessness, low income, unemployed, alcoholism, drug addiction, leon sportation, low edu. Level, literacy, decrease access to med. care, nursing home, rehab)? @ -No Was there de-escalation of care discussed even if they declined (Discuss DNR or withdrawal of care, Hospice)? DNR status @ -No What co-morbidities impacted this encounter? (DM, HTN, Smoking, COPD, CAD, Cancer, CVA, ARF, Chemo, Hep., AIDS, mental health diagnosis, sleep apnea, morbid obesity)? @ -None Was patient admitted / discharged? Hospital course, mention meds given and route, prescriptions, significant lab abnormalities, going to OR and other pertinent info. @ -58-year-old male presenting chief complaint of diarrhea. He determines this to be from stress. He is having no red flag symptoms. He is given Lomotil and discharged home. Follow-up with PCP. Report back to ER with any new or worsening symptoms. Discussed return parameters and answered all questions. Patient conveyed verbal understanding and agreed to the plan. I discussed this case in detail with my attending Dr. Gloria Undiagnosed new problem with uncertain prognosis? @ -No Drug Therapy requiring intensive monitoring for toxicity (Heparin, Nitro, Insulin, Cardizem)? @ -No Were any procedures done? @ -No Diagnosis/symptom? @ -Diarrhea Acute, or Chronic, or Acute on Chronic? @ -Acute Uncomplicated (without systemic symptoms) or Complicated (systemic symptoms)? @ -Uncomplicated Side effects of treatment? @ -No Exacerbation, Progression, or Severe Exacerbation? @ -No Poses a threat to life or bodily function? How? (Chest pain, [place], [place], pneumonia, PE, COPD, DKA, ARF, appy, cholecystitis, CVA, Diverticulitis, Homicidal, Suicidal, threat to staff... and all critical care pts) @ -Unlikely Disposition Clinical Impression: Diarrhea Disposition: HOME SELF-CARE Condition: Good Instructions (If sedation given, give patient instructions): Acute Diarrhea (ED) Additional Instructions: Follow-up with PCP. Report back to ER with any new or worsening symptoms. Stay well-hydrated. Prescriptions: Diphenox-Atrop 2.5-0.025 mg [Lomotil] 1 - 2 tab PO QID PRN 3 Days #24 tab PRN Reason: Diarrhea Is patient prescribed a controlled substance at d/c from ED?: No Referrals: Beck Pinto MD [Primary Care Provider] - 1-2 days Time of Disposition: 00:04
[2024-02-29] MEDS: DIPHENOX-ATROP 2.5-0.025 MG 1 EACH TAB PO STA (01:01)
[2024-02-29 01:27] VITALS: BP 136/84; PULSE 68; RESP 20
== END 2024-02-29 01:15 | disposition home or self-care (01) ==
LOC: EC 22:46
DX: R19.7 Diarrhea, unspecified (principal); Z90.89 Acquired absence of other organs; Z90.49 Acquired absence of other specified parts of digestive tract